=== PATIENT | female | born 1980 | race Caucasian/White ===

== ENCOUNTER 2019-08-02 18:19 | Inpatient (IN) | payer MEDICARE ==
[~2019-08-02] VITALS: Ht 152.4 cm; Wt 30.7 kg
[2019-08-02] MEDS ORDERED: magnesium hydroxide 30ml (MOM) UD suspension PO PRN (20:45)
[2019-08-02] MEDS ORDERED: acetaminophen 325mg tablet PO PRN ×2 (20:45)
[2019-08-02] MEDS ORDERED: mag hydrox/Alum hydrox/simeth 30ml oral suspension PO PRN (20:45)
[2019-08-02] MEDS ORDERED: loperamide 2mg capsule PO PRN (20:45)
[2019-08-02 20:57] VITALS: BP 131/91
[2019-08-02] MEDS ORDERED: DIVA500T2 PO (21:01)
[2019-08-02] MEDS ORDERED: PANT20TA3 PO (21:01)
[2019-08-02] MEDS ORDERED: LORA2TAB96 PO (21:01)
[2019-08-02] MEDS ORDERED: ZOLP10TA PO (21:01)
[2019-08-02] MEDS ORDERED: ERGO50002 PO (21:01)
[2019-08-02] MEDS ORDERED: TEN1T PO (21:01)
[2019-08-02] MEDS ORDERED: ONDA4TAB6 PO (21:01)
[2019-08-02] MEDS ORDERED: DEXT5TAB26 PO (21:01)
[2019-08-02] MEDS ORDERED: DIVA125T2 PO (21:01)
[2019-08-02] MEDS ORDERED: DICY10CA88 PO (21:01)
[2019-08-02] MEDS ORDERED: THIA50TA10 PO (21:01)
[2019-08-02] MEDS ORDERED: GABA-530 PO ×2 (21:01)
[2019-08-02] MEDS ORDERED: ondansetron 4mg rapidly disintigrating tab PO PRN (21:10)
[2019-08-02] MEDS ORDERED: zolpidem 5mg tablet PO ONE (22:15)
[2019-08-02] MEDS: divalproex sodium 500mg tablet.DR PO SCH (22:16)
[2019-08-02] MEDS: gabapentin 100mg capsule PO SCH (22:16)
[2019-08-02] MEDS: dicyclomine 10 MG capsule PO SCH (22:16)
[2019-08-02] MEDS: LORazepam 1 MG tablet PO PRN (22:20)
--- NOTE | 2019-08-02 23:16 | NUR ---
ADMIT NOTE: Pt arrived at [facility] from [facility] at approx 1915. Pt is ambulatory and 2 person skin assessment was completed by myself and Jennifer COOK. Pts skin is clear. PCT Crystal completed safety check, contraband was found and documented in paper chart. Pt is here due to suicidal ideation. Pt states she doesnt feel safe to return home and could not safety plan. She has a plan to hang herself or use one of her fathers guns. Pt has depression, anxiety r/t anorexia. Pt reports feeling anxious and depressed upon arrival and reports insomnia. Pt had a snack during evening snack and returned to her room. Pt took meds and went to bed.
[2019-08-03 07:20] LABS: HEMOGLOBIN A1C 5.7 % (4.5-6.2)
[2019-08-03 07:22] LABS: CHOL/HDL RATIO 2.9 (0.00-4.99); CHOLESTEROL 161 MG/DL (0-200); HDL CHOLESTEROL 55 MG/DL (35-60); LDL CHOLESTEROL 87 MG/DL (50-100); TRIGLYCERIDES 42 MG/DL (20-135)
[2019-08-03] MEDS ORDERED: dextroamphetamine/amphetamine 5mg tablet PO SCH (07:30)
[2019-08-03 07:37] VITALS: BP 100/71
[2019-08-03] MEDS: guanFACINE 1 mg tablet PO SCH ×2 (07:55→20:38)
[2019-08-03] MEDS: gabapentin 100mg capsule PO SCH ×3 (07:56→20:34)
[2019-08-03] MEDS: pantoprazole 40mg Tablet.DR PO SCH (07:57)
[2019-08-03] MEDS: dicyclomine 10 MG capsule PO SCH ×3 (07:57→20:37)
[2019-08-03] MEDS: divalproex sodium 500mg tablet.DR PO SCH ×2 (07:57→13:00)
[2019-08-03] MEDS ORDERED: ergocalciferol (Vitamin D) 50,000 unit capsule PO SCH (08:00)
[2019-08-03] MEDS ORDERED: thiamine 100mg tablet PO SCH (08:00)
--- NOTE | 2019-08-03 10:00 | NUR ---
Group Therapy: Process Group This Clinicians goals for this process group were as follows: (1) Ask scaling questions about patients current anxiety, depression, and irritability symptoms as a check-in. (2) Share psychoeducation about emotional/situational triggers as they relate to the onset of unwanted mental health symptoms. (3) Identify examples of emotional/situational triggers within the group milieu. (4) Share psychoeducation on interventions as tools to reduce emotional escalation. (5) Identify several interventions within the group milieu that patients may utilizing in reducing emotional escalation caused by emotional/situational triggers. (6) Engage patients in discussion of the topics shared within the group milieu. Patient identified experiencing the following levels of anxiety, depression, and anger/irritability while present in the group milieu. Anxiety: 10/26 Depression: 07/26 Anger/irritability: 03/28 Patient presented as open and cooperative within the group milieu. Patient presented in personal, nondescript clothing--a white t-shirt and pants that were appropriate for the situation. Patient presented as slightly disheveled within the group milieu--uncombed hair. Per this Clinician's observation, Patient presented as significantly underweight. Patient presented as nonobtrusive and verbally engaged during the discussion on situational/emotional triggers and interventions that one could utilize to reduce the acuity of unwanted mental health symptoms. When asked by this Clinician an intervention that Patient could utilize to reduce unwanted depression symptoms, Patient answered, "Eat a cookie." This Clinician validated this response noting that sometimes the interventions that one utilizes may be more personal and idiosyncratic, but if the practice is not harmful to self, or others, and it is effective, then it may be appropriate to use as an intervention to calm us down. Sheng Burrell MA, CANINE SERVICE INSTRUCTOR TRAINER Addendum: 08/03/19 at 1155 by Sheng Burrell Amended: Links added.
[2019-08-03] MEDS: ondansetron 4mg rapidly disintigrating tab PO SCH ×2 (13:07→20:00)
--- NOTE | 2019-08-03 15:24 | NUR ---
Malnutrition consult: BMI 12.7; 29.5 kg. no edema present. 25% PO intake. History of anorexia nervosa 7 years. RN spoke with patient regarding food preferences, patient reports dislikes mushrooms and onions; states will "take more than 2 bites" of foods like French, [place] Islander, and pizza. She drinks ensure with meals, recommend to send. No available weight history. reports a recent loss of about 5 lbs. Admitted with SI, h/o depression, anxiety, ED. Recommend: 1. continue regular diet 2. offer ensure with meals 3. weekly wt Addendum: 08/03/19 at [address] Amended: Links added.
--- NOTE | 2019-08-03 16:55 | NUR ---
Nursing Progress Note: Legal hold: LPS conserved Client on involuntary status for GD Report received from Nurse Christine RN, with use of SBAR Why are they here: Pt is here due to suicidal ideation. Pt states she doesnt feel safe to return home and could not safety plan. She has a plan to hang herself or use one of her fathers guns. Pt has of anorexia nervosa for 7 years. Pt. reports feeling suicidal since April after her psychiatrist took her off of Klonopin and increased her Seroquel. Pt. also reports feeling like her life started to get out of control, being unable to sleep and eat and losing 10 lbs within a week. Assessment What has happened this shift: Pt. asleep at start of shift. Pt. awake for medications. Pt. took all medications. Pt. reports she only ate a couple bites of her breakfast because she fills up too fast. Pt. drank 100% of ensure shake. 1:1 done at bedside. Pt. +SI with plan to hang herself. Pt. denies HI, A/V hallucinations. Pt. reports her SI started in April after her psychiatrist d/cd her Klonopin and increased her Seroquel. Pt. also reports feeling like her life started to get out of control, being unable to sleep and eat and losing 10 lbs within a week. Provider ordered that pt. is to stay out of her room hour after eating her meals to prevent purging. Pt. was compliant with this. Pt.s treatment planned adjusted to include nutrition deficit. Pt. attended group and participated. Pt. seen conversing with peers appropriately, but minimally. EKG done and was normal. Pt. started on Zofran ODT for nausea at meal times. S/I, H/I: +SI with plan to hang herself. A/VH: Pt denies Sleep: Pt. intermittently napped. ADL's: Independent. Group attendance: Yes Were meds taken: Yes Any med S/E: None noted or reported. Mental Status Exam Appearance: Severely emaciated, clean, wearing street clothes. Eye contact: Appropriate Behavior: Cooperative, withdrawn, socializing Speech: soft, clear. Mood: Depressed. Affect: Congruent with mood. Thought process: Linear Thought Content: Concerned with medications. Cognition: A/O X 3 Insight: Poor Judgment: Fair Interventions PRN's used: none Therapeutic interventions: 1:1 assessment, active listening, therapeutic conversation, maintained a safe and supportive environment, medication administration/education/monitoring, positive reinforcement, Q 15 minute safety checks. Restraints/seclusion/emergency medication: N/A Justification of Continued Inpatient Treatment: Pt. is dangerously underweight with BMI of 12. Pt. has suicidal ideation with a plan to steel hanger herself. Pt. needs crisis disruption and to be monitored as well as comprehensive aftercare plan.
[2019-08-03] MEDS: lactose-reduced food (Ensure Enlive) - 237ml bottle PO SCH (18:22)
[2019-08-03 19:30] VITALS: BP 99/74
[2019-08-03] MEDS: zolpidem 5mg tablet PO SCH (20:34)
[2019-08-03] MEDS: LORazepam 1 MG tablet PO PRN (20:37)
[2019-08-03] MEDS: divalproex sodium 250mg tablet PO SCH (20:37)
[2019-08-03] MEDS ORDERED: divalproex sodium 500mg tablet.DR PO SCH (21:00)
[2019-08-03 21:37] VITALS: BP 99/74
--- NOTE | 2019-08-03 23:23 | NUR ---
Nursing Progress Note: Legal hold: LPS conserved Client on involuntary status for GD Report received from Nurse Christine COOK, with use of SBAR Why are they here: Pt is here due to suicidal ideation. Pt states she doesnt feel safe to return home and could not safety plan. She has a plan to hang herself or use one of her fathers guns. Pt reports hx of anorexia nervosa for 7 years. Pt. reports feeling suicidal since April after her psychiatrist took her off of Klonopin and increased her Seroquel. Pt. also reports feeling like her life is out of control, being unable to sleep and eat and losing 10 lbs within a week (3 weeks ago) which has significantly contributed to her depression. Assessment What has happened this shift: Pt. laying in bed at start of shift. Pt. reports she was able to eat a couple bites of her dinner but she did not drink her shake because it was strawberry and she only likes chocolate. RN offered pt. chocolate protein shake but pt. declined, stating she was already full. Request placed in order for only chocolate ensure shakes. 1:1 done at bedside. Pt. denies SI/HI, A/V hallucinations. Pt. continues to report depression regarding her difficulty eating and sleeping. RN spoke with life insurance specialist Cyndie regarding pt.s choice foods and disliked foods. Pt. requested she receive her gabapentin and Depakote BID and not TID. Pt. also requested her vitamins D and thiamine be discontinued because it causes her stomach agitation. RN spoke with pt.s provider who agreed to changes. S/I, H/I: Denies A/VH: Denies Sleep: See sleep hours ADL's: Independent. Group attendance: Pt. did not attend evening snack Were meds taken: Yes Any med S/E: None noted or reported. Mental Status Exam Appearance: Severely emaciated, clean, wearing street clothes. Eye contact: Appropriate Behavior: Cooperative, withdrawn, isolates to room Speech: soft, clear. Mood: Depressed. Affect: Congruent with mood. Thought process: Linear Thought Content: Concerned with medication regimen Cognition: A/O X 3 Insight: Poor Judgment: Fair Interventions PRN's used: Ativan 2mg po Therapeutic interventions: 1:1 assessment, active listening, therapeutic conversation, maintained a safe and supportive environment, medication administration/education/monitoring, positive reinforcement, Q 15 minute safety checks. Restraints/seclusion/emergency medication: N/A Justification of Continued Inpatient Treatment: Pt. is dangerously underweight with BMI of 12. Pt. has suicidal ideation with a plan to pack changer herself. Pt. reports disruption in sleep and eating pattern causing significant depression. Pt. needs crisis disruption and to be monitored as well as comprehensive aftercare plan.
[2019-08-04 07:56] VITALS: BP 104/68
[2019-08-04] MEDS: lactose-reduced food (Ensure Enlive) - 237ml bottle PO SCH ×3 (08:00→18:22)
[2019-08-04] MEDS ORDERED: guanFACINE 1 mg tablet PO SCH (08:41)
[2019-08-04] MEDS: guanFACINE 1 mg tablet PO SCH ×2 (09:10→19:54)
[2019-08-04 09:20] VITALS: BP 100/70
[2019-08-04] MEDS: divalproex sod 125mg tablet.DR PO SCH (09:23)
[2019-08-04] MEDS: dicyclomine 10 MG capsule PO SCH ×3 (09:23→20:12)
[2019-08-04] MEDS: gabapentin 100mg capsule PO SCH ×2 (09:24→20:00)
[2019-08-04] MEDS: pantoprazole 40mg Tablet.DR PO SCH (09:24)
--- NOTE | 2019-08-04 17:50 | NUR ---
Nursing Progress Note: Legal hold: 5150 Client on involuntary status for DTS. Report received from nurse with use of SBAR: Zhou RN Why are they here: Pt is here due to suicidal ideation. Pt states she doesnt feel safe to return home and could not safety plan. She has a plan to hang herself or use one of her fathers guns. Pt reports hx of anorexia nervosa for 7 years. Pt. reports feeling suicidal since April after her psychiatrist took her off of Klonopin and increased her Seroquel. Pt. also reports feeling like her life is out of control, being unable to sleep and eat and losing 10 lbs within a week (3 weeks ago) which has significantly contributed to her depression. Assessment What has happened this shift: Received pt. asleep in bed at the beginning of the shift, this data analyst report writer awoke her to attend breakfast. Pt. compliant with sitting up the Group Room for 30 minutes after eating to monitor for binging per orders. No s/s of binging noted this shift, will continue to monitor. Pt. returned back to bed following breakfast and continued to isolate in her room throughout most of the shift, napping intermittently. 1:1 completed at bedside, pt. denies any S/I, H/I, A/V/ZARAGOZA, and no delusional statements made. She presents with poverty of thought and speech is soft, responds with minimal 1-2 word answers. Per nutrition intake records, pt. is consuming approximately 25-50% of all meals, and 50% of Ensure shakes, will continue to monitor. In the afternoon, pt. up doing laundry and interacting minimally with others. S/I, H/I: Denies A/VH: Denies, does not appear internally preoccupied Sleep: Pt. naps intermittently throughout the shift, sleep hours are 8.25 ADL's: Requires some encouragement from staff Group attendance: No Were meds taken: Held Tenex r/t decreased BP outside parameters, MARTHA Han notified. Any med S/E: None Mental Status Exam Appearance: Hair disheveled, appropriately dressed Eye contact: Fair Behavior: Cooperative, fatigued, anxious, isolative, and guarded Speech: Soft, responds with minimal 1-2 word answers Mood: Depressed and guarded Affect: Constricted Thought process: Poverty of thought Thought Content: WNL Cognition: A&O X4 Insight: Poor Judgment: Poor Interventions PRN's used: None Therapeutic interventions: Introduced self and established rapport, ensured contract for safety, maintained a safe and therapeutic environment, provided clear and simple instructions, monitored behavior and need for intervention, and maintained a safe and supportive environment. Restraints/seclusion/emergency medication: N/A Justification of Continued Inpatient Treatment: Pt. requires interruption of current crisis, medication adjustments, and as safe and therapeutic environment.
[2019-08-04] MEDS: gabapentin 100mg capsule PO PRN ×2 (18:52→23:19)
[2019-08-04 19:49] VITALS: BP 98/62
[2019-08-04] MEDS: LORazepam 1 MG tablet PO PRN (20:11)
[2019-08-04] MEDS: divalproex sodium 250mg tablet PO SCH (20:12)
[2019-08-04] MEDS: zolpidem 5mg tablet PO SCH (20:12)
--- NOTE | 2019-08-04 23:25 | NUR ---
Nursing Progress Note: Legal hold: 5150 Client on involuntary status for DTS. Report received from nurse with use of SBAR: JOYCE Gomez Why are they here: Pt is here due to suicidal ideation. Pt states she doesnt feel safe to return home and could not safety plan. She has a plan to hang herself or use one of her fathers guns. Pt reports hx of anorexia nervosa for 7 years. Pt. reports feeling suicidal since April after her psychiatrist took her off of Klonopin and increased her Seroquel. Pt. also reports feeling like her life is out of control, being unable to sleep and eat and losing 10 lbs within a week (3 weeks ago) which has significantly contributed to her depression. Assessment What has happened this shift: Pt was sitting in group room with another pt at change of shift. Pt appeared to be sitting quietly by herself, trying to avoid other patients. Pt mostly isolated to her room during evening before going to bed. Pt denies being SI/HI but stated that she did not want to discuss it. Pt denies a/vh and does not appear to be internally bothered. Pt's friend called to give info on pt's history, pt agreed to allow this rn to speak with her. According to pt's friend, the pt stated that "the dr's here keep changing my medications and are not giving me my vitamins." Pt's emar notes that the pt refused b'12 injection. S/I, H/I: Denies A/VH: Denies, does not appear internally preoccupied Sleep: see sleep assessment ADL's: Requires some encouragement from staff Group attendance: n/a Were meds taken: yes, tenex helf to low bp Any med S/E: None Mental Status Exam Appearance: Hair disheveled, appropriately dressed Eye contact: Fair Behavior: isolative, and guarded Speech: Soft, responds with minimal 1-2 word answers Mood: Depressed and guarded Affect: Constricted Thought process: Poverty of thought Thought Content: WNL Cognition: A&O X4 Insight: Poor Judgment: Poor Interventions PRN's used: ativan, gabapentin Therapeutic interventions: Introduced self and established rapport, ensured contract for safety, maintained a safe and therapeutic environment, provided clear and simple instructions, monitored behavior and need for intervention, and maintained a safe and supportive environment. Restraints/seclusion/emergency medication: N/A Justification of Continued Inpatient Treatment: Pt. requires interruption of current crisis, medication adjustments, and as safe and therapeutic environment.
[2019-08-05 08:00] VITALS: BP 103/60
[2019-08-05] MEDS: guanFACINE 1 mg tablet PO SCH ×2 (08:00→20:00)
[2019-08-05 08:30] VITALS: BP 100/60
[2019-08-05] MEDS: lactose-reduced food (Ensure Enlive) - 237ml bottle PO SCH ×3 (08:32→18:03)
[2019-08-05] MEDS: divalproex sod 125mg tablet.DR PO SCH (08:32)
[2019-08-05] MEDS: dicyclomine 10 MG capsule PO SCH ×3 (08:32→20:15)
[2019-08-05] MEDS: pantoprazole 40mg Tablet.DR PO SCH (08:33)
[2019-08-05] MEDS: gabapentin 100mg capsule PO SCH ×2 (08:33→20:15)
--- NOTE | 2019-08-05 09:13 | NUR ---
PSYCHOSOCIAL ASSESSMENT Bradley is a 39 y/o single female who was placed on 5150 while at [facility]. She had been at [facility] on a voluntary basis for 11 days. She was suicidal and stated she would harm herself if she went home. She had had recent medication changes (seroquel and klonopin were d/c'd) by her provider at [facility]. After the medication changes she felt increasingly worse and lost an additional 10 lbs. She reported insomnia, ncreased anxiety, feeling depressed, hopeless, and suicidal with a plan to hang herself or shoot herself with her dad's gun. Bradley presents as significantly depresed with anxiety. 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 She reported she has been on SSDI for the past 4 yrs due to her anorexia diagnosis. She lives alone in an apartment in [place] and her best friend, Sebastian, is her [employer] energy worker. She gets 12 hours of IHSS a week. She reported she has not been driving due to feeling too weak. She currently weighs 65 lbs and her BMI is 12.7. She stated she weighed 135 lbs 7 years ago when she began struggling with anorexia. She reported she thinks she needs to gain weight and "I love food". She stated, "my stomach is hungry, my brain is telling me not to eat". She has been in counseling in the past and reported her friend had been looking for an eating disorder in-patient program prior to her admit at [facility]. She reported she would like to go to an eating disorder clinic. She also requested she return to [facility] as she felt like she had been starting to improve. However, she was placed on a 5150 at [facility] due to SI with a plan. ROHAN Leija Addendum: 08/05/19 at 0913 by Paula Mendes SS Amended: Links added.
--- NOTE | 2019-08-05 12:35 | NUR ---
Nursing Progress Note: Legal hold: 5150 Client on involuntary status for DTS. Report received from nurse with use of SBAR: Leesa Monroy RN Why are they here: Pt is here due to suicidal ideation. Pt states she doesnt feel safe to return home and could not safety plan. She has a plan to hang herself or use one of her fathers guns. Pt reports hx of anorexia nervosa for 7 years. Pt. reports feeling suicidal since April after her psychiatrist took her off of Klonopin and increased her Seroquel. Pt. also reports feeling like her life is out of control, being unable to sleep and eat and losing 10 lbs within a week (3 weeks ago) which has significantly contributed to her depression. Assessment What has happened this shift: Received pt. again asleep in bed at the beginning of the shift, this insurance underwriter awoke her to attend breakfast. Pt. continues to be compliant with sitting up the Group Room for 30 minutes after eating to monitor for purging per orders, no s/s of purging noted. 1:1 completed, pt. continues to deny S/I, however reports that she does not feel safe returning home at this time. She rates her depression as 6/10, and her anxiety as 9/10, pt. states, "I think if I could get the anxiety under control, it would held the depression." She denies the need for PRN Ativan at this time, reports that she takes this at [facility]. This insurance underwriter questioned pt. r/t the cause of her anxiety, and she reported that she feels anxious about being here and not knowing what is going to happen next. However, pt. admits that she would feel comfortable going to an inpatient eating disorder unit for further treatment if she got the chance. Pt. again returns back to bed following meals, and isolates in her room napping. Awoke pt. to attend group, however she refused. Held ordered Tenex again this AM r/t decreased BP per parameters, will continue to monitor. S/I, H/I: Denies A/VH: Denies, does not appear internally preoccupied Sleep: Pt. naps intermittently throughout the shift, sleep hours are 7.75 ADL's: Requires some encouragement from staff Group attendance: No Were meds taken: Held Tenex r/t decreased BP outside parameters, MARTHA Han notified. Any med S/E: None Mental Status Exam Appearance: Hair disheveled r/t laying in bed, appropriately dressed Eye contact: Fair Behavior: Cooperative, fatigued, anxious, isolative, and guarded Speech: Soft, responds with minimal 1-2 word answers Mood: Depressed and guarded Affect: Constricted Thought process: Poverty of thought Thought Content: WNL Cognition: A&O X4 Insight: Poor Judgment: Poor Interventions PRN's used: None Therapeutic interventions: Ensured contract for safety, maintained a safe and therapeutic environment, provided clear and simple instructions, monitored behavior and need for intervention, provided active listening and positive encouragement, monitored meal intake and purging per orders, and maintained a safe and supportive environment. Restraints/seclusion/emergency medication: N/A Justification of Continued Inpatient Treatment: Per MARTHA Han, pt. would benefit from placement at an inpatient eating disorder unit, manager social media are looking for placement. In the meantime she requires stabilization and as safe and therapeutic environment.
[2019-08-05] MEDS: hydrOXYzine 25 MG tablet PO PRN (14:00)
[2019-08-05] MEDS ORDERED: lactose-reduced food (Ensure Enlive) - 237ml bottle PO SCH (18:00)
[2019-08-05 19:30] VITALS: BP 108/75
[2019-08-05] MEDS: divalproex sodium 250mg tablet PO SCH (20:15)
[2019-08-05] MEDS: LORazepam 1 MG tablet PO PRN (20:15)
[2019-08-05] MEDS: zolpidem 5mg tablet PO SCH (20:15)
[2019-08-05] MEDS: gabapentin 100mg capsule PO PRN (21:39)
--- NOTE | 2019-08-06 00:35 | NUR ---
Nursing Progress Note: Legal hold: 5150 Client on involuntary status for DTS. Report received from nurse with use of SBAR: JOYEC Gomez Why are they here: Pt is here due to suicidal ideation. Pt states she doesnt feel safe to return home and could not safety plan. She has a plan to hang herself or use one of her fathers guns. Pt reports hx of anorexia nervosa for 7 years. Pt. reports feeling suicidal since April after her psychiatrist took her off of Klonopin and increased her Seroquel. Pt. also reports feeling like her life is out of control, being unable to sleep and eat and losing 10 lbs within a week (3 weeks ago) which has significantly contributed to her depression. Assessment What has happened this shift: Pt mostly isolated to her room all evening. Pt appears depressed, also states that she is anxious but declined ativan, as she wanted to wait until hs. Pt stated that she is hoping to get sent to a treatment facility for anorexia. Pt denies si/hi a/vh. Pt accepted hs meds with no issue. S/I, H/I: Denies A/VH: Denies, does not appear internally preoccupied Sleep: see sleep assessment ADL's: Requires some encouragement from staff Group attendance: n/a Were meds taken: yes, tenex helf to low bp Any med S/E: None Mental Status Exam Appearance: Hair disheveled, appropriately dressed Eye contact: Fair Behavior: isolative, and guarded Speech: Soft, responds with minimal 1-2 word answers Mood: Depressed and guarded Affect: Constricted Thought process: Poverty of thought Thought Content: WNL Cognition: A&O X4 Insight: Poor Judgment: Poor Interventions PRN's used: ativan, gabapentin Therapeutic interventions: Introduced self and established rapport, ensured contract for safety, maintained a safe and therapeutic environment, provided clear and simple instructions, monitored behavior and need for intervention, and maintained a safe and supportive environment. Restraints/seclusion/emergency medication: N/A Justification of Continued Inpatient Treatment: Pt. requires interruption of current crisis, medication adjustments, and as safe and therapeutic environment.
[2019-08-06] MEDS: gabapentin 100mg capsule PO SCH ×2 (07:59→20:25)
[2019-08-06] MEDS: divalproex sod 125mg tablet.DR PO SCH (07:59)
[2019-08-06] MEDS: guanFACINE 1 mg tablet PO SCH (07:59)
[2019-08-06] MEDS: dicyclomine 10 MG capsule PO SCH ×3 (07:59→20:25)
[2019-08-06] MEDS: pantoprazole 40mg Tablet.DR PO SCH (07:59)
[2019-08-06 08:00] VITALS: BP 118/83
[2019-08-06] MEDS: hydrOXYzine 25 MG tablet PO PRN ×2 (08:54→16:11)
[2019-08-06] MEDS: lactose-reduced food (Ensure Enlive) - 237ml bottle PO SCH ×3 (08:56→17:58)
--- NOTE | 2019-08-06 10:17 | NUR ---
Nursing Progress Note: Legal hold: Voluntary Client on involuntary status for DTS. Report received from nurse with use of SBAR: Leesa Monroy RN Why are they here: Pt is here due to suicidal ideation. Pt states she doesnt feel safe to return home and could not safety plan. She has a plan to hang herself or use one of her fathers guns. Pt reports hx of anorexia nervosa for 7 years. Pt. reports feeling suicidal since April after her psychiatrist took her off of Klonopin and increased her Seroquel. Pt. also reports feeling like her life is out of control, being unable to sleep and eat and losing 10 lbs within a week (3 weeks ago) which has significantly contributed to her depression. Assessment What has happened this shift: Received pt. awake in her room at the beginning of the shift, she continues to present as depressed with a flat affect. Pt. requests her morning medications prior to breakfast, BP within parameters and ordered Tenex administered, will monitor. Pt. up for breakfast, continues to be compliant with sitting up the Group Room for 30 minutes after eating to monitor for purging per orders, no s/s of purging noted. She is able to eat approximately 50% of meals. Pt. again returns back to bed after breakfast and continues to isolate there throughout the shift. 1:1 completed at bedside, she continues to deny S/I, but again reports she does not feel safe returning home. Pt. is still hoping to get into an inpatient eating disorder clinic, and she would like to discuss this with a social work instructor when possible to see what progress has been made. Pt. continues to be depressed and anxious, and rates both as 7/10, however she admits she is somewhat more hopeful about the future and receiving help. She requested PRN Atrax, administered with effectiveness, will continue to monitor. S/I, H/I: Denies A/VH: Denies, does not appear internally preoccupied Sleep: Pt. naps intermittently throughout the shift, sleep hours are 8.25 ADL's: Requires some encouragement from staff Group attendance: No Were meds taken: Yes Any med S/E: None Mental Status Exam Appearance: Hair disheveled r/t laying in bed, appropriately dressed Eye contact: Fair Behavior: Cooperative, fatigued, anxious, isolative, and guarded Speech: Soft, responds with minimal 1-2 word answers, voice is monotone Mood: Depressed and guarded Affect: Flat Thought process: Poverty of thought Thought Content: WNL Cognition: A&O X4 Insight: Poor Judgment: Fair Interventions PRN's used: Atrax Therapeutic interventions: Ensured contract for safety, maintained a safe and therapeutic environment, provided clear and simple instructions, monitored behavior and need for intervention, provided active listening and positive encouragement, monitored meal intake and purging per orders, and maintained a safe and supportive environment. Restraints/seclusion/emergency medication: N/A Justification of Continued Inpatient Treatment: Per Guille PA, pt. would benefit from placement at an inpatient eating disorder unit, clinical social worker are looking for placement. In the meantime she requires stabilization, medication adjustments, and as safe and therapeutic environment.
--- NOTE | 2019-08-06 13:23 | NUR ---
Reassessment: Pt with slowly improving PO intake, initially with average 25% PO intake however now up to 50% with 75% PO intake at lunch yesterday. Pt receiving Ensure Enlive TID documented with mostly 50% PO intake however with 100% PO intake x 2 ONS. Given low weight pt is meeting nutrient needs at this time. Recommend encouraging PO intake and continuing ONS until pt more consistently tolerating greater than 50% of meals. LBM 08/04 documented as small with last moderate BM 08/03. Pt with PRN bowel care available. No further nutrition intervention implemented at this time. Will continue to follow closely. Recommend: 1. continue regular diet 2. Ensure Enlive TID 3. Bowel care PRN 4. Scaled wt per rx Addendum: 08/06/19 at [address] Amended: Links added.
[2019-08-06 17:40] VITALS: BP_SYST 115; BP_SYST 128; BP_DIAS 67; BP_DIAS 82; BP_DIAS 86
--- NOTE | 2019-08-06 17:44 | NUR ---
Nursing Note: Pt. c/o dizziness upon sitting up in bed, obtained orthostatic V/S which were negative. MARTHA Han notified, obtained orders to discontinue Tenex, r/t pt. frequently reporting dizziness after being administered this medication. Also new order for a CMP, will continue to monitor. Addendum: 08/06/19 at 1754 by Sarnaya George RN Pt. heart rate did significantly increase from supine to standing position, Guille THOMAS made aware.
[2019-08-06 20:00] VITALS: BP 106/86
[2019-08-06] MEDS: divalproex sodium 250mg tablet PO SCH (20:24)
[2019-08-06] MEDS: zolpidem 5mg tablet PO SCH (20:25)
[2019-08-06] MEDS: LORazepam 1 MG tablet PO PRN (20:28)
[2019-08-06] MEDS: NICOTINE POLACRILEX 2 MG LOZENGE BC PRN (21:41)
--- NOTE | 2019-08-07 00:40 | NUR ---
Nursing Progress Note: Legal hold: Voluntary Client on involuntary status for DTS. Report received from nurse with use of SBAR: JOYCE Valentino Why are they here: Pt is here due to suicidal ideation. Pt states she doesnt feel safe to return home and could not safety plan. She has a plan to hang herself or use one of her fathers guns. Pt reports hx of anorexia nervosa for 7 years. Pt. reports feeling suicidal since April after her psychiatrist took her off of Klonopin and increased her Seroquel. Pt. also reports feeling like her life is out of control, being unable to sleep and eat and losing 10 lbs within a week (3 weeks ago) which has significantly contributed to her depression. Assessment What has happened this shift: Patient was up and in rec room at change of shift.She appears depressed and states that she is anxious. She was sitting next to some peers but would not engage with them. At med time she requested a Prn of Ativan and a nicotine lozenge. She denies feeling suicidal at this time but dose not feel safe to go home as of yet. S/I, H/I: Denies A/VH: Denies, does not appear internally preoccupied Sleep: Pt. naps intermittently throughout the shift, sleep hours are 8.25 ADL's: Requires some encouragement from staff Group attendance: No Were meds taken: Yes Any med S/E: None Mental Status Exam Appearance: Hair disheveled r/t laying in bed, appropriately dressed Eye contact: Fair Behavior: Cooperative, fatigued, anxious, isolative, and guarded Speech: Soft, responds with minimal 1-2 word answers, voice is monotone Mood: Depressed and guarded Affect: Flat Thought process: Poverty of thought Thought Content: WNL Cognition: A&O X4 Insight: Poor Judgment: Fair Interventions PRN's used: Ativan nicotine lozenge. Therapeutic interventions: Ensured contract for safety, maintained a safe and therapeutic environment, provided clear and simple instructions, monitored behavior and need for intervention, provided active listening and positive encouragement, monitored meal intake and purging per orders, and maintained a safe and supportive environment. Restraints/seclusion/emergency medication: N/A Justification of Continued Inpatient Treatment: Per MARTHA Han, pt. would benefit from placement at an inpatient eating disorder unit, psychologist social are looking for placement. In the meantime she requires stabilization, medication adjustments, and as safe and therapeutic environment.
[2019-08-07] MEDS: dicyclomine 10 MG capsule PO SCH ×3 (07:25→20:15)
[2019-08-07] MEDS: divalproex sod 125mg tablet.DR PO SCH (07:25)
[2019-08-07] MEDS: pantoprazole 40mg Tablet.DR PO SCH (07:25)
[2019-08-07] MEDS: gabapentin 100mg capsule PO SCH ×2 (07:26→20:15)
[2019-08-07 07:34] LABS: ALANINE AMINOTRANSFERASE 27 U/L (12-78); ALBUMIN 3.2 G/DL (3.4-5.0); ALKALINE PHOSPHATASE 44 IU/L (46-116); ANION GAP 3 (8-16); ASPARTATE AMINO TRANSFERASE 19 U/L (10-37); BILIRUBIN,TOTAL 0.3 MG/DL (0.1-1.0); BLOOD UREA NITROGEN 22 MG/DL (7-18); BUN/CREATININE RATIO 43.1 (6.6-38.0); CALCIUM 9.2 MG/DL (8.5-10.1); CHLORIDE 105 MMOL/L (99-107); CREATININE 0.51 MG/DL (0.40-0.90); GLUCOSE 82 MG/DL (70-104); POTASSIUM 4.4 MMOL/L (3.5-5.1); SODIUM 143 MMOL/L (135-145); TOTAL CARBON DIOXIDE 35.4 MMOL/L (24-32); TOTAL PROTEIN 6.3 G/DL (6.4-8.2); eGFR > 90 ML/MIN
[2019-08-07 07:55] VITALS: BP 93/60
[2019-08-07 08:30] VITALS: BP 123/78
[2019-08-07] MEDS: hydrOXYzine 25 MG tablet PO PRN ×3 (08:41→22:37)
[2019-08-07] MEDS: NICOTINE POLACRILEX 2 MG LOZENGE BC PRN ×3 (08:42→21:06)
[2019-08-07] MEDS: lactose-reduced food (Ensure Enlive) - 237ml bottle PO SCH ×3 (08:53→17:51)
--- NOTE | 2019-08-07 11:30 | NUR ---
Nursing Progress Note: Legal hold: Voluntary Client on involuntary status for DTS. Report received from nurse with use of SBAR: JOYCE Bernal Why are they here: Pt is here due to suicidal ideation. Pt states she doesnt feel safe to return home and could not safety plan. She has a plan to hang herself or use one of her fathers guns. Pt reports hx of anorexia nervosa for 7 years. Pt. reports feeling suicidal since April after her psychiatrist took her off of Klonopin and increased her Seroquel. Pt. also reports feeling like her life is out of control, being unable to sleep and eat and losing 10 lbs within a week (3 weeks ago) which has significantly contributed to her depression. Assessment What has happened this shift: Received pt. awake in her room at the beginning of the shift, she awoke for morning medications. Pt. continues to present as depressed, fatigued, guarded, and isolative. She isolates in her room, however continues to be compliant with getting up for meals in the Group Room. Per MARTHA Han pt. no longer needs to be monitored for purging after meals, she reports content with this change, and denies any purging. 1:1 completed at bedside, pt. continues to deny S/I, but reports depression 8/10 today. When this narrative writer questioned her regarding anxiety, she rated her anxiety as 10/10, but was unable to describe why she was feeling more anxious today. PRN Atrax administered, and will continue to monitor. Pt also requesting PRN Nicotine Lozenges today, offered to obtain an order for a Nicotine Patch, however pt. refused. She continued to isolate in bed throughout the day, coming out occasionally to check the clock. S/I, H/I: Denies A/VH: Denies, does not appear internally preoccupied Sleep: Pt. reports that she slept restlessly last night. She naps intermittently throughout the shift, sleep hours are 7 ADL's: Requires some encouragement from staff Group attendance: No Were meds taken: Yes Any med S/E: None Mental Status Exam Appearance: Hair disheveled r/t laying in bed, appropriately dressed Eye contact: Fair Behavior: Cooperative, fatigued, anxious, isolative, and guarded Speech: Soft, responds with minimal 1-2 word answers, voice is monotone Mood: Depressed and guarded Affect: Flat Thought process: Poverty of thought Thought Content: WNL Cognition: A&O X4 Insight: Poor Judgment: Fair Interventions PRN's used: Atrax and Nicotine Lozenge Therapeutic interventions: Ensured contract for safety, maintained a safe and therapeutic environment, provided clear and simple instructions, monitored behavior and need for intervention, provided active listening and positive encouragement, continued to monitor meal intake and discontinued monitor for purging orders, and maintained a safe and supportive environment. Restraints/seclusion/emergency medication: N/A Justification of Continued Inpatient Treatment: Per MARTHA Han, pt. continues to be depressed and helpless and requires medication adjustments, and as safe and therapeutic environment. Addendum: 08/07/19 at 1247 by Saranya George RN Pt's CMP laboratory results back, Guille THOMAS aware and asks this narrative writer to obtain pt's weight. Pt. has lost 0.35Kg, Guille THOMAS aware, no new orders at this time. Pt. reports nausea, PRN Zofran administered prior to lunch, will continue to monitor.
[2019-08-07] MEDS: ondansetron 4mg rapidly disintigrating tab PO PRN (12:29)
[2019-08-07] MEDS ORDERED: lactose-reduced food (Ensure Enlive) - 237ml bottle PO SCH (18:00)
[2019-08-07 20:00] VITALS: BP 111/70
[2019-08-07] MEDS: zolpidem 5mg tablet PO SCH (20:15)
[2019-08-07] MEDS: LORazepam 1 MG tablet PO PRN (20:16)
[2019-08-07] MEDS: divalproex sodium 250mg tablet PO SCH (20:16)
--- NOTE | 2019-08-08 00:14 | NUR ---
Nursing Progress Note: Legal hold: Voluntary Client on involuntary status for DTS. Report received from nurse with use of SBAR: JOYCE Bernal Why are they here: Pt is here due to suicidal ideation. Pt states she doesnt feel safe to return home and could not safety plan. She has a plan to hang herself or use one of her fathers guns. Pt reports hx of anorexia nervosa for 7 years. Pt. reports feeling suicidal since April after her psychiatrist took her off of Klonopin and increased her Seroquel. Pt. also reports feeling like her life is out of control, being unable to sleep and eat and losing 10 lbs within a week (3 weeks ago) which has significantly contributed to her depression. Assessment What has happened this shift: Patient was in rec room watching tv at the start of the shift.Pt reports that she drank all her protean drink and had crackers for snack. She denies SI at this time. Pt reported difficulty falling asleep this shift stating its do to anxiety. Pt was given her Prn with little effect. She had Ativan ,Atarax and nicotine lozenge.Pt states she is restless while in bed. S/I, H/I: Denies A/VH: Denies, does not appear internally preoccupied Sleep: Pt. reports that she slept restlessly last night. She naps intermittently throughout the shift, sleep hours are 7 ADL's: Requires some encouragement from staff Group attendance: No Were meds taken: Yes Any med S/E: None Mental Status Exam Appearance: Hair disheveled r/t laying in bed, appropriately dressed Eye contact: Fair Behavior: Cooperative, fatigued, anxious, isolative, and guarded Speech: Soft, responds with minimal 1-2 word answers, voice is monotone Mood: Depressed and guarded Affect: Flat Thought process: Poverty of thought Thought Content: WNL Cognition: A&O X4 Insight: Poor Judgment: Fair Interventions PRN's used: Atrax and Nicotine Lozenge, Ativan Therapeutic interventions: Ensured contract for safety, maintained a safe and therapeutic environment, provided clear and simple instructions, monitored behavior and need for intervention, provided active listening and positive encouragement, continued to monitor meal intake and discontinued monitor for purging orders, and maintained a safe and supportive environment. Restraints/seclusion/emergency medication: N/A Justification of Continued Inpatient Treatment: Per MARTHA Han, pt. continues to be depressed and helpless and requires medication adjustments, and as safe and therapeutic environment.
[2019-08-08 07:54] VITALS: BP 112/73
[2019-08-08] MEDS: gabapentin 100mg capsule PO SCH ×2 (08:04→20:23)
[2019-08-08] MEDS: dicyclomine 10 MG capsule PO SCH ×3 (08:04→20:24)
[2019-08-08] MEDS: divalproex sod 125mg tablet.DR PO SCH (08:05)
[2019-08-08] MEDS: pantoprazole 40mg Tablet.DR PO SCH (08:06)
[2019-08-08] MEDS: lactose-reduced food (Ensure Enlive) - 237ml bottle PO SCH ×4 (08:21→18:00)
--- NOTE | 2019-08-08 09:19 | NUR ---
F/u: Currently out of ensure enlive and Glucerna chocolate TIDWM to be used as comparable substitution until restocked given pt flavor preference. AMPARO esposito/liane COOK and dietary notified. Addendum: 08/08/19 at [address] Amended: Links added.
--- NOTE | 2019-08-08 14:47 | NUR ---
Spoke to Kt at [facility] (ph# [phone]) regarding referral for intensive out-patient eating disorder program. Their program is via tele-med. They also have weekly counseling if Bradley does not qualify for the [facility] due to insurance coverage. Left message at [facility] (ph# ) to inquire about insurance coverage. Spoke with Yael (ph# [phone]) at [facility] (main ph# [phone]) and she reported they had been in contact with [facility] and [place] for eating disorder treatment. She reported Bradley went to [place] as they were having difficulty finding an ED program for her. Asked if the [facility] would be willing to assist with payment. Informed her of the [facility] in [place]. Informed her that television writer referred Bradley to [facility] and that Bradley feels like she needs an in-patient program. Yael reported she will call television writer back after she consults regarding the [facility] assisting with payment. ROHAN Leija
[2019-08-08] MEDS: NICOTINE POLACRILEX 2 MG LOZENGE BC PRN ×2 (16:11→22:25)
[2019-08-08] MEDS: ondansetron 4mg rapidly disintigrating tab PO PRN (16:11)
--- NOTE | 2019-08-08 17:50 | NUR ---
Nursing Progress Note: Bradley Legal hold: Voluntary Client on involuntary status for DTS. Report received from nurse with use of SBAR: JOYCE Bernal Why are they here: Pt is here due to suicidal ideation. Pt states she doesnt feel safe to return home and could not safety plan. She has a plan to hang herself or use one of her fathers guns. Pt reports hx of anorexia nervosa for 7 years. Pt. reports feeling suicidal since April after her psychiatrist took her off of Klonopin and increased her Seroquel. Pt. also reports feeling like her life is out of control, being unable to sleep and eat and losing 10 lbs within a week (3 weeks ago) which has significantly contributed to her depression. Assessment: Woke patient up to eat breakfast and lunch meals. Patient reserved/quiet but pleasant and compliant with staff request. Prefers macie ensure, made sure she had chocolate today. Still needs encouragement to eat, eating minimum 25% of meals. Other than meals, youll find patient resting in bed. States she is not sleeping well. Requested Nicotine lozenge & also Zofran for upset stomach, resolved with med. Asked if she would want to take a shower, patient gently refuses. Patient is approachable and gentle in responding. S/I, H/I: Yes but no specific plan, states doesnt feel safe to go home, denies homicidal thoughts A/VH: Denies, does not appear internally preoccupied Sleep: Pt. reports that she did not sleep well last noc. She naps intermittently throughout the shift, sleep hours are 9.25 ADL's: Requires some encouragement from staff Group attendance: No Were meds taken: Yes Any med S/E: None Mental Status Exam Appearance: Hair disheveled r/t laying in bed, appropriately dressed Eye contact: Fair Behavior: Cooperative, fatigued, isolative, and guarded Speech: Soft, responds with minimal 1-2 word answers, voice is monotone Mood: Depressed and guarded Affect: Flat Thought process: Poverty of thought Thought Content: WNL Cognition: A&O X4 Insight: Poor Judgment: Fair Interventions PRN's used: Zofran & Nicotine Lozenge Therapeutic interventions: Ensured contract for safety, maintained a safe and therapeutic environment, provided clear and simple instructions, monitored behavior and need for intervention, provided active listening and positive encouragement, continued to monitor meal intake and discontinued monitor for purging orders, and maintained a safe and supportive environment. Restraints/seclusion/emergency medication: N/A Justification of Continued Inpatient Treatment: Per MARTHA Han, pt. continues to be depressed and helpless and requires medication adjustments, and as safe and therapeutic environment.
[2019-08-08] MEDS: hydrOXYzine 25 MG tablet PO PRN (18:35)
[2019-08-08 20:07] VITALS: BP 112/62
[2019-08-08] MEDS: zolpidem 5mg tablet PO SCH (20:24)
[2019-08-08] MEDS: divalproex sodium 250mg tablet PO SCH (20:24)
[2019-08-08] MEDS: LORazepam 1 MG tablet PO PRN (20:24)
--- NOTE | 2019-08-09 00:29 | NUR ---
Nursing Progress Note: Bradley Legal hold: Voluntary Client on involuntary status for DTS. Report received from nurse with use of SBAR: JOYCE Valentino Why are they here: Pt is here due to suicidal ideation. Pt states she doesnt feel safe to return home and could not safety plan. She has a plan to hang herself or use one of her fathers guns. Pt reports hx of anorexia nervosa for 7 years. Pt. reports feeling suicidal since April after her psychiatrist took her off of Klonopin and increased her Seroquel. Pt. also reports feeling like her life is out of control, being unable to sleep and eat and losing 10 lbs within a week (3 weeks ago) which has significantly contributed to her depression. Assessment: Patient was in bed at start of shift. She c/o increased anxiety. Prn Atarax given. Talked with pt and encouraged her to get out of bed and be active instead of lying in bed and dwelling on things. Pt got up and walked the halls and watched tv for a little while before returning to bed. Asked for a nicotine lozenge , and prn ativan with her Hs meds. S/I, H/I: Yes but no specific plan, states doesnt feel safe to go home, denies homicidal thoughts A/VH: Denies, does not appear internally preoccupied Sleep: Pt. reports that she did not sleep well last noc. She naps intermittently throughout the shift, sleep hours are 9.25 ADL's: Requires some encouragement from staff Group attendance: No Were meds taken: Yes Any med S/E: None Mental Status Exam Appearance: Hair disheveled r/t laying in bed, appropriately dressed Eye contact: Fair Behavior: Cooperative, fatigued, isolative, and guarded Speech: Soft, responds with minimal 1-2 word answers, voice is monotone Mood: Depressed and guarded Affect: Flat Thought process: Poverty of thought Thought Content: WNL Cognition: A&O X4 Insight: Poor Judgment: Fair Interventions PRN's used: Atarax, Ativan, Nicotine Lozenge Therapeutic interventions: Ensured contract for safety, maintained a safe and therapeutic environment, provided clear and simple instructions, monitored behavior and need for intervention, provided active listening and positive encouragement, continued to monitor meal intake and discontinued monitor for purging orders, and maintained a safe and supportive environment. Restraints/seclusion/emergency medication: N/A Justification of Continued Inpatient Treatment: Per MARTHA Han, pt. continues to be depressed and helpless and requires medication adjustments, and as safe and therapeutic environment.
--- NOTE | 2019-08-09 08:19 | NUR ---
Faxed referral packet to [facility]. ROHAN Leija
[2019-08-09] MEDS: divalproex sod 125mg tablet.DR PO SCH (08:24)
[2019-08-09] MEDS: pantoprazole 40mg Tablet.DR PO SCH (08:25)
[2019-08-09] MEDS: ESCITALOPRAM OXALATE 5 MG TABLET PO SCH (08:25)
[2019-08-09] MEDS: dicyclomine 10 MG capsule PO SCH ×3 (08:25→20:14)
[2019-08-09] MEDS: gabapentin 100mg capsule PO SCH ×2 (08:25→20:15)
--- NOTE | 2019-08-09 08:52 | NUR ---
Reassessment: Pt PO 75-100% ONS w/ PO increasing to 50-75% avg past 3 days up to 75-100% dinner last night currently meeting needs using IBW. LBM 08/07. Will continue to monitor. Recommend: 1. continue regular diet; encourage PO 2. Chocolate Ensure Enlive TID; Glucerna TID temporarily until ensure enlive restocked 3. Bowel care PRN 4. Scaled wt per rx Addendum: 08/09/19 at [address] Amended: Links added.
--- NOTE | 2019-08-09 10:00 | NUR ---
Group Therapy: Process Group This Clinicians goals for this process group were as follows: (1) Ask scaling questions about Patients current anxiety, depression, and irritability symptoms as a check-in. (2) Share psychoeducation about self-efficacy, and ego strength. (3) Provide psychoeducation on [place] Drama triangleVictim, Persecutor, Rescuer dynamic. (4) Share psychoeducation on developing positive ego strengthpositive affirmations, positive self-talk, transitioning from a victim of circumstances to a survivor of circumstances. (5) Process Clients thoughts and reflections on this topic within the group milieu. Patient identified experiencing the following levels of anxiety, depression, and anger/irritability while present in the group milieu. Anxiety: 10/26 Depression: 08/25 Anger/irritability: 04/25 Patient presented as open and cooperative within the group milieu. Patient wore a white tank top and dark running pants that were appropriate for the milieu. Patient presents as severely underweight. Patient presented as verbally subdued and nonobtrusive during the discussion on ego strength, Zimorytalha's drama triangle and positive affirmations. She arrived within the group milieu about twenty minutes after the start time, but stayed until the process group ended. Patient raised her hand once or twice to identify out loud examples of "positive affirmations." When asked directly by this Clinician a positive affirmation that she could say about herself, Patient stated, "I am a good friend." Sheng Burrell MA, ROHAN Addendum: 08/09/19 at 1132 by Sheng Burrell SS Amended: Links added.
[2019-08-09] MEDS: ondansetron 4mg rapidly disintigrating tab PO PRN ×2 (11:44→21:14)
--- NOTE | 2019-08-09 12:09 | NUR ---
1:1 with Bradley. She was laying in bed in the dark, wearing sweatpants and a long sleeve shirt. She reported she went to group today and participated. Commended her for doing so. She reported she continues to feel hopeless. Discussed her desire to go to an in-patient eating disorder program. She reported she would like to gain weight and be at a healthy weight. She stated, "I'm willing to do whatever it takes". She reported she feels like if she were to go home she would stop eating again, "my depression would get the best of me". She reported she has not received any counseling for her eating disorder. She reported she does not think she has anorexia because "my stomach is hungry and I want to eat but my brain tells me not to". She has some insight in that she stated she needs to learn how to eat again. She reported her stomach has shrunk from eating so little and it hurts after she eats. She reported she is eating more since she arrived on the unit. She presented as quite depressed, anhedonic, hopeless, and reported she experiences suicidal and morbid ideation, "what's the point, I may as well just give up, I'm better off ". Provided Bradley with information on [facility] IOP via tele-med. She reported "it won't work for me, I won't follow through, I need someone pushing me". This particular program appears to be quite intensive. Informed her that an in-patient program is going to have a lot of expectations of her and encouraged her to get out of bed and socialize more. [employer] will follow up with [facility] and continue to research available programs for her. ROHAN Leija
[2019-08-09] MEDS: lactose-reduced food (Ensure Enlive) - 237ml bottle PO SCH ×2 (13:36→17:59)
--- NOTE | 2019-08-09 15:01 | NUR ---
Nursing Progress Note: Bradley Legal hold: Voluntary Client on involuntary status for DTS. Report received from nurse with use of SBAR: JOYCE Bernal Why are they here: Pt is here due to suicidal ideation. Pt states she doesnt feel safe to return home and could not safety plan. She has a plan to hang herself or use one of her fathers guns. Pt reports hx of anorexia nervosa for 7 years. Pt. reports feeling suicidal since April after her psychiatrist took her off of Klonopin and increased her Seroquel. Pt. also reports feeling like her life is out of control, being unable to sleep and eat and losing 10 lbs within a week (3 weeks ago) which has significantly contributed to her depression. Assessment: What happened this shift. Received pt sleeping at shift change. Pt. Eats all meals in the group room with close observation during meals. Pt. Reports this morning that she feels sick to her stomach and may feel that it is a side effect of medications. Zofran given with good effect. Pt. Denies SI today. S/I, H/I: Denies. A/VH: Denies, does not appear internally preoccupied Sleep: 6.25 hrs. NOC. ADL's: Requires some encouragement from staff Group attendance: No Were meds taken: Yes Any med S/E: Nausea Mental Status Exam Appearance: Unkempt in personal attire. Eye contact: Fair Behavior: Cooperative, fatigued, isolative, and guarded Speech: Soft, responds with minimal 1-2 word answers, voice is monotone Mood: Depressed Affect: Flat Thought process: Poverty of thought Thought Content: Getting into [facility]. Cognition: A&O X4 Insight: Poor Judgment: Fair Interventions PRN's used: Zofran Therapeutic interventions: Ensured contract for safety, maintained a safe and therapeutic environment, provided clear and simple instructions, monitored behavior and need for intervention, provided active listening and positive encouragement, continued to monitor meal intake and discontinued monitor for purging orders, and maintained a safe and supportive environment. Restraints/seclusion/emergency medication: N/A Justification of Continued Inpatient Treatment: Per MARTHA Han, pt. continues to be depressed and helpless and requires medication adjustments, and as safe and therapeutic environment.
[2019-08-09] MEDS: hydrOXYzine 25 MG tablet PO PRN (18:54)
[2019-08-09] MEDS: zolpidem 5mg tablet PO SCH (20:15)
[2019-08-09] MEDS: LORazepam 1 MG tablet PO PRN (20:15)
[2019-08-09] MEDS: divalproex sod 250mg ER (24-hour) tablet PO SCH (20:16)
[2019-08-09 20:34] VITALS: BP 115/73
[2019-08-09] MEDS: NICOTINE POLACRILEX 2 MG LOZENGE BC PRN (21:58)
--- NOTE | 2019-08-10 00:31 | NUR ---
Nursing Progress Note: Bradley Legal hold: Voluntary Client on involuntary status for DTS. Report received from nurse with use of SBAR: JOYCE Valentino Why are they here: Pt is here due to suicidal ideation. Pt states she doesnt feel safe to return home and could not safety plan. She has a plan to hang herself or use one of her fathers guns. Pt reports hx of anorexia nervosa for 7 years. Pt. reports feeling suicidal since April after her psychiatrist took her off of Klonopin and increased her Seroquel. Pt. also reports feeling like her life is out of control, being unable to sleep and eat and losing 10 lbs within a week (3 weeks ago) which has significantly contributed to her depression. Assessment: What happened this shift. Patient was up and in group room watching tv. Pt states that she feels less anxious and is able to inter act with peers. she drinks her protein drinks and is eating at least 25 % of meals. She states that she realy wants to go into treatment upon d/c from here. S/I, H/I: Denies. A/VH: Denies, does not appear internally preoccupied Sleep: 6.25 hrs. NOC. ADL's: Requires some encouragement from staff Group attendance: No Were meds taken: Yes Any med S/E: Nausea Mental Status Exam Appearance: Unkempt in personal attire. Eye contact: Fair Behavior: Cooperative, fatigued, isolative, and guarded Speech: Soft, responds with minimal 1-2 word answers, voice is monotone Mood: Depressed Affect: Flat Thought process: Poverty of thought Thought Content: Getting into [facility]. Cognition: A&O X4 Insight: Poor Judgment: Fair Interventions PRN's used: Zofran,Ativan,Atarax Therapeutic interventions: Ensured contract for safety, maintained a safe and therapeutic environment, provided clear and simple instructions, monitored behavior and need for intervention, provided active listening and positive encouragement, continued to monitor meal intake and discontinued monitor for purging orders, and maintained a safe and supportive environment. Restraints/seclusion/emergency medication: N/A Justification of Continued Inpatient Treatment: Per Guille PA, pt. continues to be depressed and helpless and requires medication adjustments, and as safe and therapeutic environment.
[2019-08-10] MEDS: ESCITALOPRAM OXALATE 5 MG TABLET PO SCH (07:55)
[2019-08-10] MEDS: pantoprazole 40mg Tablet.DR PO SCH (07:56)
[2019-08-10] MEDS: dicyclomine 10 MG capsule PO SCH ×3 (07:56→20:28)
[2019-08-10] MEDS: gabapentin 100mg capsule PO SCH ×2 (07:56→20:40)
[2019-08-10 08:00] VITALS: BP 105/68
[2019-08-10] MEDS: lactose-reduced food (Ensure Enlive) - 237ml bottle PO SCH ×3 (08:00→18:17)
[2019-08-10] MEDS ORDERED: hydrOXYzine 25 MG tablet PO SCH (08:00)
--- NOTE | 2019-08-10 09:25 | NUR ---
[facility] Called [facility] ( ) to follow up on referral. She was declined due to no bed availability. He reported they were currently on diversion and unable to accept referrals, however, this changes on a day to day basis. Nutrition Teacher will call again tomorrow to check on bed availability. ROHAN Leija
--- NOTE | 2019-08-10 10:00 | NUR ---
Group Therapy: Process Group This Clinicians goal for this process group were as follows: (1) Share psychoeducation about core beliefs and how these beliefs shapes how one views reality. (2) Compare and contrast how people with different core beliefs might interpret an identical situation differently. (3) Discuss how changing negative core beliefs to more balanced, helpful, and rational alternatives can lead to improved behaviors and mood. (4) Process Clients thoughts and reflections on this topic within the group milieu. Patient identified experiencing the following levels of anxiety, depression, and anger/irritability while present in the group milieu. Anxiety: 09/25 Depression: 07/26 Anger/irritability: 04/25 Patient presented as open and cooperative within the group milieu. Patient was dressed in nondescript personal clothing that was appropriate for the milieu. Patient is severely underweight, per this Clinician's impression. Patient's thought process was clear, coherent, and linear. Her thought content was clear and concrete during group. Patient presented as verbally engaged, and nonobtrusive during the conversation on core beliefs and how changing one's core belief could influence one's mood, actions and surface thoughts about a situation. Sheng Burrell MA, ROHAN Addendum: 08/10/19 at 1126 by Sheng Burrell Amended: Links added.
[2019-08-10] MEDS: hydrOXYzine 25 MG tablet PO PRN (13:53)
--- NOTE | 2019-08-10 14:52 | NUR ---
[facility], special services coordinator, at [facility] (ph# [phone]), called to follow up on referral for intensive out-patient program. He reported their clinical team believes Bradley is in need of a higher level of care (in-patient eating disorder program). Thanked him for calling back. ROHAN Leija
[2019-08-10] MEDS: NICOTINE POLACRILEX 2 MG LOZENGE BC PRN ×2 (14:59→22:43)
--- NOTE | 2019-08-10 15:55 | NUR ---
Nursing Progress Note: Bradley Legal hold: Voluntary Client on involuntary status for DTS. Report received from nurse with use of SBAR: JOYCE King Why are they here: Pt is here due to suicidal ideation. Pt states she doesnt feel safe to return home and could not safety plan. She has a plan to hang herself or use one of her fathers guns. Pt reports hx of anorexia nervosa for 7 years. Pt. reports feeling suicidal since April after her psychiatrist took her off of Klonopin and increased her Seroquel. Pt. also reports feeling like her life is out of control, being unable to sleep and eat and losing 10 lbs within a week (3 weeks ago) which has significantly contributed to her depression. Assessment: What happened this shift. Patient was asleep at change of shift and up for breakfast. Patient denies suicidal ideation but does not feel she is safe to go home. Patient ate breakfast but only took a few bites for lunch. Patient denies attempting to vomit since she has been here. Patient states she is not feeling well today and thinks it might be the medication making her tired. Patient had a BM today but was small and hard. Patient refused prune juice and also refused M.O.M. Patient is depressed and has been in bed most of the day. S/I, H/I: Denies. A/VH: Denies Sleep: napped or in bed most of the day. ADL's: Requires some encouragement from staff Group attendance: No Were meds taken: Yes Any med S/E: Nausea, tired Mental Status Exam Appearance: Unkempt in personal attire. Eye contact: Fair Behavior: Cooperative, fatigued, isolative, and guarded Speech: Soft, responds with minimal 1-2 word answers, voice is monotone Mood: Depressed Affect: Flat Thought process: Poverty of thought Thought Content: Getting into a program Cognition: A&O X4 Insight: Poor Judgment: Fair Interventions PRN's used: Zofran, Nicotine lozenge, Atarax Therapeutic interventions: Ensured contract for safety, maintained a safe and therapeutic environment, provided clear and simple instructions, monitored behavior and need for intervention, provided active listening and positive encouragement, continued to monitor meal intake and discontinued monitor for purging orders, and maintained a safe and supportive environment. Restraints/seclusion/emergency medication: N/A Justification of Continued Inpatient Treatment: Per MARTHA Han, pt. continues to be depressed and helpless and requires medication adjustments, and as safe and therapeutic environment.
[2019-08-10 19:39] VITALS: BP 109/72
[2019-08-10] MEDS: divalproex sod 250mg ER (24-hour) tablet PO SCH (20:28)
[2019-08-10] MEDS: hydrOXYzine 25 MG tablet PO SCH (20:28)
[2019-08-10] MEDS: zolpidem 5mg tablet PO SCH (20:40)
[2019-08-10] MEDS: LORazepam 1 MG tablet PO PRN (20:47)
--- NOTE | 2019-08-10 22:57 | NUR ---
Nursing Progress Note: Bradley Legal hold: Voluntary Client on involuntary status for DTS. Report received from nurse with use of SBAR: Kellie COOK Why are they here: Pt is here due to suicidal ideation. Pt states she doesnt feel safe to return home and could not safety plan. She has a plan to hang herself or use one of her fathers guns. Pt reports hx of anorexia nervosa for 7 years. Pt. reports feeling suicidal since April after her psychiatrist took her off of Klonopin and increased her Seroquel. Pt. also reports feeling like her life is out of control, being unable to sleep and eat and losing 10 lbs within a week (3 weeks ago) which has significantly contributed to her depression. Assessment: What happened this shift. Patient is observed socializing with female peers and watching a movie in the community room with peers. She is quiet but pleasant when spoken to. She denies SI/HI/AH/VH at this time. She is started on atarax 75mg TID tonight, medication explained to pt, pt verbalized understanding. Pt agreed to take the atarax but still wanted to take her prn ativan before bed. Pt requests a nicotine esvin which is given to her. "I wish I could just chain smoke 5 cigarettes right now." S/I, H/I: Denies. A/VH: Denies Sleep:see sleep assessment ADL's: Requires some encouragement from staff Group attendance: no groups this shift Were meds taken: Yes Any med S/E: none reported, none observed Mental Status Exam Appearance: WNL Eye contact: Fair Behavior: Cooperative, socializing on unit Speech: Soft, responds with minimal 1-2 word answers, voice is monotone Mood: Depressed Affect: Flat Thought process: Poverty of thought Thought Content: wanting a cigarette Cognition: A&O X4 Insight: Poor Judgment: Fair Interventions PRN's used: Ativan, nicotine Therapeutic interventions: Ensured contract for safety, maintained a safe and therapeutic environment, provided clear and simple instructions, monitored behavior and need for intervention, provided active listening and positive encouragement, continued to monitor meal intake and discontinued monitor for purging orders, and maintained a safe and supportive environment. Restraints/seclusion/emergency medication: N/A Justification of Continued Inpatient Treatment: Per MARTHA Han, pt. continues to be depressed and helpless and requires medication adjustments, and as safe and therapeutic environment.
[2019-08-11 08:00] VITALS: BP 111/72
[2019-08-11] MEDS: lactose-reduced food (Ensure Enlive) - 237ml bottle PO SCH ×3 (08:00→18:11)
[2019-08-11] MEDS: ESCITALOPRAM OXALATE 5 MG TABLET PO SCH (08:08)
[2019-08-11] MEDS: gabapentin 100mg capsule PO SCH ×2 (08:08→20:26)
[2019-08-11] MEDS: dicyclomine 10 MG capsule PO SCH ×3 (08:08→20:25)
[2019-08-11] MEDS: pantoprazole 40mg Tablet.DR PO SCH (08:08)
[2019-08-11] MEDS: hydrOXYzine 25 MG tablet PO SCH ×3 (08:09→20:27)
[2019-08-11] MEDS: ondansetron 4mg rapidly disintigrating tab PO PRN (13:49)
[2019-08-11] MEDS: NICOTINE POLACRILEX 2 MG LOZENGE BC PRN ×3 (15:18→21:03)
--- NOTE | 2019-08-11 15:50 | NUR ---
Called [facility] to inquire about bed availability. They do currently have beds and said to go ahead and fax referral with [facility] contact information. Called Yael (ph# [phone], [phone]) to apprise her of this. She reported she will find out how they can support Bradley with going to [facility] if accepted. Bradley may need to d/c from [facility] and get re-evaluated prior to going to [facility]. Faxed referral packet to [facility]. ROHAN Leija
--- NOTE | 2019-08-11 17:12 | NUR ---
NURSING PROGRESS NOTE Legal hold: Voluntary Client on involuntary status for DTS. Report received from JOYCE King with use of SBAR Why are they here: Pt is here due to suicidal ideation. Pt states she doesnt feel safe to return home and could not safety plan. She has a plan to hang herself or use one of her fathers guns. Pt reports hx of anorexia nervosa for 7 years. Pt. reports feeling suicidal since April after her psychiatrist took her off of Klonopin and increased her Seroquel. Pt. also reports feeling like her life is out of control, being unable to sleep and eat and losing 10 lbs within a week (3 weeks ago) which has significantly contributed to her depression. Assessment: What happened this shift. Isolating to room most of day. Gets up for meals and talks a bit with peers. Reports passive SI stating, "I think I would be better off " and thinks "I should go home and just kill myself" (no plan). C/O nausea after lunch and stated, "I ate too much." Asked if she purged and she stated, "I don't do that." Given Zofran for nausea with good effect. C/O itchy skin on legs near groin, given lotion for dry skin. S/I, H/I: Passive SI A/VH: Denies Sleep: napped or in bed most of the day. ADL's: Requires some encouragement from staff Group attendance: No Were meds taken: Yes Any med S/E: None Mental Status Exam Appearance: slightly disheveled Eye contact: Fair Behavior: Cooperative, fatigued, isolative, and guarded Speech: clear, soft Mood: Depressed Affect: Flat Thought process: linear Thought Content: passive SI thoughts Cognition: A&O X4 Insight: Poor Judgment: Fair Interventions PRN's used: Zofran, Nicotine lozenge, Therapeutic interventions: Ensured contract for safety, maintained a safe and therapeutic environment, provided clear and simple instructions, monitored behavior and need for intervention, provided active listening and positive encouragement, continued to monitor meal intake and discontinued monitor for purging orders, and maintained a safe and supportive environment. Restraints/seclusion/emergency medication: N/A Justification of Continued Inpatient Treatment: Per MARTHA Han, pt. continues to be depressed and helpless and requires medication adjustments, and as safe and therapeutic environment.
[2019-08-11 20:00] VITALS: BP 105/72
[2019-08-11] MEDS: zolpidem 5mg tablet PO SCH (20:25)
[2019-08-11] MEDS: divalproex sod 250mg ER (24-hour) tablet PO SCH (20:26)
[2019-08-11] MEDS: LORazepam 1 MG tablet PO PRN (20:27)
--- NOTE | 2019-08-11 23:12 | NUR ---
Nursing Progress Note: Bradley Legal hold: Voluntary Client on involuntary status for DTS. Report received from nurse with use of SBAR: Zhou COOK Why are they here: Pt is here due to suicidal ideation. Pt states she doesnt feel safe to return home and could not safety plan. She has a plan to hang herself or use one of her fathers guns. Pt reports hx of anorexia nervosa for 7 years. Pt. reports feeling suicidal since April after her psychiatrist took her off of Klonopin and increased her Seroquel. Pt. also reports feeling like her life is out of control, being unable to sleep and eat and losing 10 lbs within a week (3 weeks ago) which has significantly contributed to her depression. Assessment: What happened this shift. Patient is observed sitting in the community room with female peer talking and watching TV. She requests her medications right at 1999. She reports not having a good day and still having passive SI. She does say while talking to a social problems specialist today she started feeling more hopeful regarding placement. She smiles occasionally but has a flat affect most of the time. She also shows assembly instructions writer a rash on her groin area, that she is using lotion on. She denies any pain or itching at this time. S/I, H/I: passive SI A/VH: Denies Sleep:see sleep assessment ADL's: Requires some encouragement from staff Group attendance: no groups this shift Were meds taken: Yes Any med S/E: none reported, none observed Mental Status Exam Appearance: WNL Eye contact: Fair Behavior: Cooperative, socializing on unit Speech: Soft, minimal Mood: Depressed Affect: Flat Thought process: Poverty of thought Thought Content: placement Cognition: A&O X4 Insight: Poor Judgment: Fair Interventions PRN's used: Ativan, nicotine Therapeutic interventions: Ensured contract for safety, maintained a safe and therapeutic environment, provided clear and simple instructions, monitored behavior and need for intervention, provided active listening and positive encouragement, continued to monitor meal intake and discontinued monitor for purging orders, and maintained a safe and supportive environment. Restraints/seclusion/emergency medication: N/A Justification of Continued Inpatient Treatment: pt. continues to be depressed and helpless and requires medication adjustments, and as safe and therapeutic environment.
[2019-08-12 07:52] VITALS: BP 107/66
[2019-08-12] MEDS: pantoprazole 40mg Tablet.DR PO SCH (08:20)
[2019-08-12] MEDS: ESCITALOPRAM OXALATE 5 MG TABLET PO SCH (08:20)
[2019-08-12] MEDS: hydrOXYzine 25 MG tablet PO SCH ×3 (08:21→20:43)
[2019-08-12] MEDS: gabapentin 100mg capsule PO SCH ×2 (08:21→20:43)
[2019-08-12] MEDS: lactose-reduced food (Ensure Enlive) - 237ml bottle PO SCH ×3 (08:31→18:00)
[2019-08-12] MEDS: dicyclomine 10 MG capsule PO SCH ×3 (08:31→20:43)
--- NOTE | 2019-08-12 09:39 | NUR ---
Called [facility] (ph# [phone]) to follow up on referral. Referral is still in the que for review. ROHAN Leija
--- NOTE | 2019-08-12 10:00 | NUR ---
Group Therapy: Process Group This Clinicians goal for this process group were as follows: (1) Ask scaling questions about Patients current anxiety, depression, and irritability symptoms as a check-in. (2) Provide psychoeducation on emotional and situational stressors. (3) Discuss thoughts and feelings that patients experience when they have experienced an emotional and/or situational stressor. (4) Provide psychoeducation on interventions, as actions patients can take to reduce feelings of emotional escalation caused by situational and emotional stressors. (5) Process Patients thoughts and reflections on this topic within the group milieu. Patient identified experiencing the following levels of anxiety, depression, and anger/irritability while present in the group milieu. Anxiety: 04/25 Depression: 07/26 Anger/irritability: 02/25 Patient presented as open and cooperative within the group milieu. Patient was dressed in personal nondescript clothing--a torres zip-up sweatshirt, and torres pants. Per this Clinician's impression, Patient presented as very underweight. Patient's thought process was clear, coherent, and linear during the process group. Her thought content was clear and concrete. Patient presented as verbally engaged and nonobtrusive within the milieu. She made numerous helpful and insightful comments about bodily feelings, emotional feelings and thoughts that she experienced when she experienced the situational stressors of being hungry, depressed, and anxious, along with sharing interventions that she would utilize to reduce the acuity of unwanted thoughts and feelings associated with said stressors. More specifically, Patient reported that when she was depressed, she made efforts to, "Look for positives in the situation," in order to reduce unwanted depression symptoms. Patient reported at the end of the session that the topic of discussion today, helped her identify some interventions that she could try to employ to reduce her depression symptoms Sheng Burrell MA, RESIDENT HALL DIRECTOR Addendum: 08/12/19 at 1130 by Sheng Burrell Amended: Links added.
[2019-08-12] MEDS: NICOTINE POLACRILEX 2 MG LOZENGE BC PRN ×4 (13:50→22:17)
--- NOTE | 2019-08-12 14:25 | NUR ---
NURSING PROGRESS NOTE Legal hold: Voluntary Client on involuntary status for DTS. Report received from JOYCE King with use of SBAR Why are they here: Pt is here due to suicidal ideation. Pt states she doesnt feel safe to return home and could not safety plan. She has a plan to hang herself or use one of her fathers guns. Pt reports hx of anorexia nervosa for 7 years. Pt. reports feeling suicidal since April after her psychiatrist took her off of Klonopin and increased her Seroquel. Pt. also reports feeling like her life is out of control, being unable to sleep and eat and losing 10 lbs within a week (3 weeks ago) which has significantly contributed to her depression. Assessment: What happened this shift. Asleep at shift change. Reports less passive thoughts today, but still having thoughts of "I'd be better off ." Depressed, flat affect. Hopelessness. Isolates to room except at meals. Rapid COVID test ordered for possible placement at [facility]. S/I, H/I: Passive SI A/VH: Denies Sleep: napped or in bed most of the day. ADL's: Requires some encouragement from staff Group attendance: No Were meds taken: Yes Any med S/E: None Mental Status Exam Appearance: slightly disheveled Eye contact: Fair Behavior: Cooperative, fatigued, isolative, and guarded Speech: clear, soft Mood: Depressed Affect: Flat Thought process: linear Thought Content: passive SI thoughts Cognition: A&O X4 Insight: Poor Judgment: Fair Interventions PRN's used: Nicotine lozenge, Therapeutic interventions: Ensured contract for safety, maintained a safe and therapeutic environment, provided clear and simple instructions, monitored behavior and need for intervention, provided active listening and positive encouragement, continued to monitor meal intake and discontinued monitor for purging orders, and maintained a safe and supportive environment. Restraints/seclusion/emergency medication: N/A Justification of Continued Inpatient Treatment: Per MARTHA Han, pt. continues to be depressed and helpless and requires medication adjustments, and as safe and therapeutic environment.
[2019-08-12] MEDS: ondansetron 4mg rapidly disintigrating tab PO PRN (14:36)
--- NOTE | 2019-08-12 16:51 | NUR ---
Bradley has been accepted at [facility]. Field Training Manager has been unable to secure transportation today and [facility] cannot hold the bed. Bradley's aunt, Hanna (ph#[phone]), can transport tomorrow (08/13/19). Field Training Manager will call [facility] at 7:30 AM tomorrow (ph# [phone]) to see if there is still a bed available and will call Hanna to inform her if she will need to transport. ROHAN Leija
[2019-08-12 19:57] VITALS: BP 107/65
[2019-08-12] MEDS: zolpidem 5mg tablet PO SCH (20:43)
[2019-08-12] MEDS: divalproex sod 250mg ER (24-hour) tablet PO SCH (20:43)
[2019-08-12] MEDS: LORazepam 1 MG tablet PO PRN (20:50)
--- NOTE | 2019-08-13 04:49 | NUR ---
Nursing Progress Note: Legal hold: Voluntary Client on voluntary status for DTS. Report received from JOYCE Epperson with use of [facility] Why are they here: Pt is here due to suicidal ideation. Pt states she doesnt feel safe to return home and could not safety plan. She has a plan to hang herself or use one of her fathers guns. Pt reports hx of anorexia nervosa for 7 years. Pt. reports feeling suicidal since April after her psychiatrist took her off of Klonopin and increased her Seroquel. Pt. also reports feeling like her life is out of control, being unable to sleep and eat and losing 10 lbs within a week (3 weeks ago) which has significantly contributed to her depression. Assessment: What happened this shift. Patient observed sitting in hallway chair at the beginning of shift. Shortly after patient showered and then began watching TV with peers in the community room. Patient is pleasant and cooperative with all care; complaint with medication. PRN Nicotine lozenge x2 provided this shift. Patient reported anxiety r/t discharging the unit to go to [facility] next shift. She explained having a good relationship with her aunt and is looking forward to seeing her aunt will be taking her to [facility]. Patient denies SI, HI and A/VH this shift and reported regular BM. Patient continued to watch TV with peers prior to bed. Does not appear to be having difficulty sleeping. S/I, H/I: Denies A/VH: Denies Sleep: Refer to sleep assessment ADL's: Independent Group attendance: No groups this shift Were meds taken: Yes Any med S/E: None reported, none observed Mental Status Exam Appearance: Showered, neat, appropriate attire. Eye contact: Fair Behavior: Cooperative, socializing and watching TV with peers Speech: Soft, clear, minimal Mood: Depressed, anxious Affect: Constricted Thought process: Poverty of thought Thought Content: Anxious for transfer to [facility] Cognition: A&O X4 Insight: Poor Judgment: Fair Interventions PRN's used: Ativan, nicotine Therapeutic interventions: Ensured contract for safety, maintained a safe and therapeutic environment, provided clear and simple instructions, monitored behavior and need for intervention, provided active listening and positive encouragement, continued to monitor meal intake and discontinued monitor for purging orders, and maintained a safe and supportive environment. Restraints/seclusion/emergency medication: None Justification of Continued Inpatient Treatment: pt. continues to be depressed and helpless and requires medication adjustments, and as safe and therapeutic environment.
[2019-08-13 07:59] VITALS: BP 128/88
[2019-08-13] MEDS: ESCITALOPRAM OXALATE 5 MG TABLET PO SCH (08:22)
[2019-08-13] MEDS: pantoprazole 40mg Tablet.DR PO SCH (08:24)
[2019-08-13] MEDS: gabapentin 100mg capsule PO SCH (08:24)
[2019-08-13] MEDS: dicyclomine 10 MG capsule PO SCH (08:24)
[2019-08-13] MEDS: hydrOXYzine 25 MG tablet PO SCH (08:24)
[2019-08-13] MEDS: lactose-reduced food (Ensure Enlive) - 237ml bottle PO SCH (08:25)
[2019-08-13] MEDS: LORazepam 1 MG tablet PO PRN (09:10)
--- NOTE | 2019-08-13 10:12 | NUR ---
DISCHARGE NOTE The patient was discharged today at 1012. She left with all belongings and instructions. She was picked up by her Aunt who is driving her to [facility] in [facility]. The patient stated she was feeling a bit anxious about leaving but handled her emotions well. She was medicated with Zofran ODT before she left due to mild nausea after breakfast. She was escorted to the lobby by DILCIA Cortes.
--- NOTE | 2019-08-13 10:21 | NUR ---
Reassessment: Patient's PO intake of meals fluctuates with average 50-75% however with 100% PO intake of Ensure Enlive TID. Pt meeting nutrient needs at this time with combined PO intake of meals and ONS given small stature. LBM 08/11. No further nutrition intervention warranted at this time. Will continue to follow. Recommend: 1. continue regular diet; encourage PO intake 2. Chocolate Ensure Enlive TID 3. Bowel care PRN 4. Scaled wt per rx Addendum: 08/13/19 at [address] Amended: Links added.
[2019-08-13] MEDS: ondansetron 4mg rapidly disintigrating tab PO PRN (10:28)
== END 2019-08-13 10:12 | disposition home or self-care (01) | DRG 885 ==
LOC: ADULT MH 19:13
PROVIDERS: ADMIT Psychiatry & Neurology Psychiatry; ATTEND Psychiatry & Neurology Psychiatry
DX: F33.2 Major depressive disorder, recurrent severe without psychotic features (principal); E46 Unspecified protein-calorie malnutrition; Z68.1 Body mass index [BMI] 19.9 or less, adult; R45.851 Suicidal ideations; F17.210 Nicotine dependence, cigarettes, uncomplicated; K21.9 Gastro-esophageal reflux disease without esophagitis; R11.0 Nausea; F40.10 Social phobia, unspecified; K52.9 Noninfective gastroenteritis and colitis, unspecified; F50.9 Eating disorder, unspecified; Z86.59 Personal history of other mental and behavioral disorders; Z81.3 Family history of other psychoactive substance abuse and dependence; Z71.6 Tobacco abuse counseling
CPT/HCPCS: 36415; 80053; 80061; 83036; 87081; 87635; 93005; 99285; Q0177